=== PATIENT | female | born 1950 | race Caucasian/White ===

== ENCOUNTER 2017-05-19 11:03 | Emergency (ER) | payer MEDICARE, OTHER, SELFPAY ==
[2017-05-19 11:10] VITALS: BP 143/94; PULSE 79; RESP 18; TEMP 36.9; O2SAT 98; BMI 26.7
--- NOTE | 2017-05-19 11:18 | XR_ITS ---
EXAM: XR thoracic spine 3V HISTORY: Posterior manic pain ITS.REASON: fall COMPARISON: None FINDINGS: There is mild multilevel degenerative disc disease. There is slight decrease in height of T12, T11, T9, T8, and T7 which could be chronic. If pain persists, MRI or CT may be of further value. IMPRESSION: 1. Minimal wedging of several dorsal vertebral bodies possibly chronic. MRI may confirm clinically warranted. 2. Degenerative changes
--- NOTE | 2017-05-19 11:35 | PC.NURSE ---
Pt returned from rad.
--- NOTE | 2017-05-19 11:52 | HMH.EDGENADL ---
ED Disposition Clinical Impression: Strain of thoracic spine Qualifiers: Encounter type: initial encounter Qualified Code(s): S29.019A - Strain of muscle and tendon of unspecified wall of thorax, initial encounter Disposition: Home, Self-Care Condition on Discharge: Good Instructions: Thoracic Back Pain Additional Instructions: Please alternate Motrin with Tylenol for pain control, apply an ice pack to the affected area, follow-up with PCP if not better within 5-7 days. Prescriptions: Cyclobenzaprine HCl [Flexeril 10mg tablet] 10 mg PO TID #45 tab Referrals: Stanislaw Vyas [Primary Care Provider] - Time of Disposition: 11:54 - Critical Care Critical Care Time: No Attestation: On 05/19/17, the high probability of a clinically significant, sudden or life threatening deterioration of the following system(s) required my full and direct attention, intervention and personal management. The time I documented below is in addition to time spent performing reported procedures but includes the following listed in this critical care notation. Medical Decision Making - Medical Records Medical records reviewed: Yes: I reviewed the patient's medical records. Vital Signs: 05/19/17 11:10 05/19/17 12:00 Temperature 98.5 F 98.4 F Temperature Source Oral Oral Pulse Rate 87 Pulse Rate [Right Brachial] 79 Respiratory Rate 18 18 Blood Pressure 137/98 Blood Pressure [Right Arm] 143/94 Blood Pressure Mean [Right Arm] 110 Blood Pressure Source Manual Cuff/ Palpation Blood Pressure Source [Right Arm] Automatic Cuff Blood Pressure Position Sitting Blood Pressure Position [Right Arm] Sitting 02 Sat by Pulse Oximetry 98 Oxygen Delivery Method Room Air Nasal Cannula Room Air - Radiology Data #1 Image(s): T-Spine Image Reviewed: Yes I reviewed the patient's radiology results, Yes I reviewed the patient's radiology image, Yes I have reviewed radiologist's interpretation Preliminary Findings: Normal/NAD - Jose Inquiry Pt receiving controlled substance: No - Reevaluation(s) Time: 11:30 Reevaluation #1: Upon evaluation patient appears medically stable no acute distress. The patient with Motrin Tylenol for pain control and follow-up with PCP if not better within 2 days. General Adult HPI - General Chief complaint: PAIN Stated complaint: AO [id number] UPPER BACK PAIN Mode of Arrival: Family Vehicle Limitations: No Limitations - History of Present Illness HPI narrative: This is a 66-year-old female patient presenting to the emergency room with upper back pain after a fall sustained just 30 minutes ago, while walking outside, and falling backwards on her also with stairs. Patient has any headache, any neck pain, loss of consciousness. MD complaint: Rest sick spine pain Onset (ago): hour(s) (2-3) Location: back (upper back) Radiation: non-radiation Severity: mild Severity scale (1-10): 2 Quality: burning Consistency: intermittent Relieving factors: rest Exacerbating factors: movement Associated symptoms: denies other symptoms - Related Data Home Medications Medication Instructions Recorded Confirmed Levothyroxine Sodium 100 mg PO DAILY 05/19/17 05/19/17 [Levothyroxine 100mcg (0.1MG) Tab] Previous Rx's Medication Instructions Recorded Cyclobenzaprine HCl [Flexeril 10mg 10 mg PO TID #45 tab 05/19/17 tablet] Allergies Allergy/AdvReac Type Severity Reaction Status Date / Time No Known Allergies Allergy Verified 05/19/17 11:18 [facility] History I have reviewed the patient's past medical history: Yes Medical History: Denies:: Cancer, Diabetes Mellitus Type 1, Diabetes Mellitus Type 2, MRSA Amputation: No - *Social History Educational Level: Completed High School Alcohol Intake: never - Psychiatric History Expresses thoughts of harming self/others: None Suicide Plan Description: No Plan ROS Obtained: Yes All systems reviewed & no additional complaints
--- NOTE | 2017-05-19 11:55 | ED_ITS ---
ED Disposition Clinical Impression: Strain of thoracic spine Qualifiers: Encounter type: initial encounter Qualified Code(s): S29.019A - Strain of muscle and tendon of unspecified wall of thorax, initial encounter Disposition: Home, Self-Care Condition on Discharge: Good Instructions: Thoracic Back Pain Additional Instructions: Please alternate Motrin with Tylenol for pain control, apply an ice pack to the affected area, follow-up with PCP if not better within 5-7 days. Prescriptions: Cyclobenzaprine HCl [Flexeril 10mg tablet] 10 mg PO TID #45 tab Referrals: Stanislaw Vyas [Primary Care Provider] - Time of Disposition: 11:54 - Critical Care Critical Care Time: No Attestation: On 05/19/17, the high probability of a clinically significant, sudden or life threatening deterioration of the following system(s) required my full and direct attention, intervention and personal management. The time I documented below is in addition to time spent performing reported procedures but includes the following listed in this critical care notation. Medical Decision Making - Medical Records Medical records reviewed: Yes: I reviewed the patient's medical records. Vital Signs: 05/19/17 11:10 05/19/17 12:00 Temperature 98.5 F 98.4 F Temperature Source Oral Oral Pulse Rate 87 Pulse Rate [Right Brachial] 79 Respiratory Rate 18 18 Blood Pressure 137/98 Blood Pressure [Right Arm] 143/94 Blood Pressure Mean [Right Arm] 110 Blood Pressure Source Manual Cuff/ Palpation Blood Pressure Source [Right Arm] Automatic Cuff Blood Pressure Position Sitting Blood Pressure Position [Right Arm] Sitting 02 Sat by Pulse Oximetry 98 Oxygen Delivery Method Room Air Nasal Cannula Room Air - Radiology Data #1 Image(s): T-Spine Image Reviewed: Yes I reviewed the patient's radiology results, Yes I reviewed the patient's radiology image, Yes I have reviewed radiologist's interpretation Preliminary Findings: Normal/NAD - Jose Inquiry Pt receiving controlled substance: No - Reevaluation(s) Time: 11:30 Reevaluation #1: Upon evaluation patient appears medically stable no acute distress. The patient with Motrin Tylenol for pain control and follow-up with PCP if not better within 2 days. General Adult HPI - General Chief complaint: PAIN Stated complaint: AO [id number] UPPER BACK PAIN Mode of Arrival: Family Vehicle Limitations: No Limitations - History of Present Illness HPI narrative: This is a 66-year-old female patient presenting to the emergency room with upper back pain after a fall sustained just 30 minutes ago, while walking outside, and falling backwards on her also with stairs. Patient has any headache, any neck pain, loss of consciousness. MD complaint: Rest sick spine pain Onset (ago): hour(s) (2-3) Location: back (upper back) Radiation: non-radiation Severity: mild Severity scale (1-10): 2 Quality: burning Consistency: intermittent Relieving factors: rest Exacerbating factors: movement Associated symptoms: denies other symptoms - Related Data Home Medications Medication Instructions Recorded Confirmed Levothyroxine Sodium 100 mg PO DAILY 05/19/17 05/19/17 [Levothyroxine 100mcg (0.1MG) Tab] Previous Rx's Medication Instructions Recorded Cyclobenzaprine HCl [Flexeril
[2017-05-19 12:00] VITALS: BP 137/98; PULSE 87; RESP 18; TEMP 36.9; O2SAT 99
== END 2017-05-19 12:01 | disposition home or self-care (01) ==
PROVIDERS: Emergency Provider Emergency Medicine; Family Provider Internal Medicine; PCP Internal Medicine
DX: S29.012A Strain of muscle and tendon of back wall of thorax, initial encounter (principal); W01.0XXA Fall on same level from slipping, tripping and stumbling without subsequent striking against object, initial encounter; Y92.007 Garden or yard of unspecified non-institutional (private) residence as the place of occurrence of the external cause
CPT/HCPCS: 72072; 99282

== ENCOUNTER → 2018-02-15 14:40 | Outpatient (CLI) | payer MEDICARE, OTHER, SELFPAY ==
--- NOTE | 2018-02-15 14:43 | MR_ITS ---
MR knee RT wo con HISTORY: Knee pain, abnormal radiograph suggesting a loose body, ITS.REASON: evaluate loose body in [facility] tknee ORDERING PHYSICIAN: Peterson Vaughn MD PATIENT AGE: 68 years Comparison: None TECHNIQUE: Standard multiplanar multiecho sequences are performed without contrast. FINDINGS: The cruciate ligaments are intact. The collateral ligaments, quadriceps tendon, and patellar tendon are intact. There is a horizontal tear involving the posterior horn and body of the medial meniscus which extends to the free edge of the meniscus posteriorly and medially. This does not extend to the articular surface of the meniscus. There are mild osteoarthritic changes involving all 3 compartments. There is a small triangular-shaped area of isointense T1 and T2 signal within the slight anterior aspect of the knee joint just anterior to the insertion of the anterior cruciate ligament. This is consistent with a loose body corresponding to the radiographic abnormality and measures approximately 4 mm. Subcortical cystic changes are present involving the distal femur anteriorly and slightly medially measuring 7 mm. Other subcortical cystic changes are present involving the lateral aspect of the medial femoral condyle toward the intercondylar groove. This is hypointense on T1 and hyperintense on T2 suggesting an area of avascular cirrhosis. A small cortical defect is present in the medial aspect of the lateral femoral condyle anteriorly. Mild amount of bone marrow edema also involving the posterior aspect of the proximal tibia at the insertion of the posterior cruciate ligament. There is a small knee joint effusion. There is thinning of the patellar cartilage with a few subcortical areas of increased T2 signal in the posterior patella. IMPRESSION: 1. Nondisplaced horizontal tear involves the ostium posterior horn of the medial meniscus extending to the free edge of the meniscus and not the articular surface. 2. Osteoarthritic changes with small loose body in the knee joint anteriorly with subcortical cystic changes and possible avascular necrosis of the lateral aspect of the medial femoral condyle anteriorly. 3. 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 Small amount of bone marrow edema involving the posterior tibia centrally at the region of the insertion of the posterior cruciate ligament possibly related to bone bruise.
== END ==
PROVIDERS: PCP Internal Medicine; Visit Provider Orthopaedic Surgery
DX: M23.41 Loose body in knee, right knee (principal)
CPT/HCPCS: 73721

== ENCOUNTER 2018-03-17 14:00 | Outpatient (RCR) | payer MEDICARE, OTHER, SELFPAY ==
--- NOTE | 2018-03-14 11:35 | HMH.PTOPEV ---
PT Outpatient Evaluation Rehab PT Outpatient Evaluation Start: 03/14/18 11:27 Freq: Status: Active Protocol: Document 03/14/18 11:28 JASON (Rec: 03/14/18 11:35 JASON [id number]) Electronically Signed By Dale Tinajero, PT 03/14/18 11:28 Outpatient Therapy Subjective History Subjective History Pt reports stepping out of the back of her van ~45 days ago, and feeling a 'tearing' sensation. MRI has confirmned a medial meniscus tear in the R knee. Pt reports improved s/ s over the last 10-14 days, and feels 80% better overall. Chief Complaint Pain Weakness Symptom Type Sharp Symptoms Relieved By Activity Symptoms Aggravated By Walking Prior Functional Limitations Walking Current Functional Limitations Walking Stairs Symptom Description Constant and Continuous Level of pain today (0-10) 2 Pain scale - at its best (0-10) 0 Pain scale - at its worst (0-10) 4 Hip/Knee Eval Gait Observation General Gait Pattern Observation Antalgic Gait Palpation Tenderness right Knee Palpation Finding Tenderness Knee Palpation Overall Comment 3/4 medial jt line MMT left Hip Flexion Strength Grade 5 Normal Hip Abduction Strength Grade 4 Good Hip Adduction Strength Grade 4 Good Hip Extension Strength Grade 4 Good Hip External Rotation Strength Grade 4 Good Hip Internal Rotation Strength Grade 4 Good Knee Extension Strength Grade 5 Normal Knee Flexion Strength Grade 5 Normal right Hip Flexion Strength Grade 5 Normal Hip Abduction Strength Grade 4 Good Hip Adduction Strength Grade 4- Good- Hip Extension Strength Grade 4- Good- Gluteus Nelson Strength Grade 4 Good Hip External Rotation Strength Grade 4 Good Knee Extension Strength Grade 5 Normal Knee Flexion Strength Grade 5 Normal ROM left Knee Flexion Active Range of Motion ( 0-140 degrees) right Knee Flexion Active Range of Motion ( 0-140 degrees) Effusion joint effusion knee exam standard right Mid - Patellar Circumerential Measure ( 38.5 cm) Special Tests Knee Dirk Test Negative Left Positive Right Outpatient Therapy Assessment Impairments Problems/Impairmments Palpation Tenderness Impaired Range of Motion Impaired Strength Impaired Gait
== END 2018-03-17 14:05 | disposition home or self-care (01) ==
LOC: PT 14:00
PROVIDERS: Visit Provider Orthopaedic Surgery
DX: S83.241A Other tear of medial meniscus, current injury, right knee, initial encounter (principal)
CPT/HCPCS: 97033; 97110; 97163

== ENCOUNTER 2020-02-20 10:25 | Emergency (ER) | payer MEDICARE, OTHER, SELFPAY ==
--- NOTE | 2020-02-20 10:42 | XR_ITS ---
PROCEDURE: XR HAND LT MIN 3V CLINICAL INDICATION: injured ring finger Injury to the 4th digit COMPARISON: No exams were available for comparison FINDINGS: Incomplete fracture is present involving the mid aspect of the distal phalanx of the 4th digit. There is dorsal subluxation of the distal fracture fragment by 3 mm. There is 0 percent bony apposition. Osteoarthritic changes are present at the 2nd 3rd and 5th DIP and the 1st interphalangeal joint as well as the 1st metacarpal-carpal joint. Other findings:None. IMPRESSION: Transverse fractured distal phalanx 4th finger with dorsal displacement of the distal fracture fragment and 0 percent bony apposition Dictated by: Jesus Smith MD 02/20/2020 12:30 Jesus Smith MD in [place] 02/20/2020 12:30
[2020-02-20 10:58] VITALS: BP 132/77; PULSE 79; RESP 18; TEMP 36.6; O2SAT 99; BMI 22.6
[2020-02-20 11:14] VITALS: BP 132/77; PULSE 79; RESP 18; TEMP 36.6; O2SAT 99
--- NOTE | 2020-02-20 11:46 | HMH.EDUTC ---
[facility] [place] Clinical Impression: Phalanx, distal fracture of finger Qualifiers: Encounter type: initial encounter Finger: ring finger Fracture type: closed Fracture alignment: displaced Laterality: left Qualified Code(s): S62.635A - Displaced fracture of distal phalanx of left ring finger, initial encounter for closed fracture Disposition: Home, Self-Care Condition on Discharge: Good Instructions: Finger Fracture, DI for Finger Fracture, How To Perform RICE (Rest, Ice, Compress, Elevate) Additional Instructions: *RICE, Rest the extremity, Ice 15-20 minutes 3-4 times daily, Compress- wear the Finger splint/sherry wrap as discussed as much as possible to help reduce swelling and pain, Elevate the extremity when at rest *Finger splint/sherry wrap is for support and help control swelling, use it except in the shower. Be sure that is not to tight but not to loose either *Elevate when resting Follow up with Dr Vaughn in the [facility]opedic [facility] at 1pm today Return if needed Straight to ER if any life threatening symptoms Referrals: Stanislaw Vyas [Primary Care Provider] - As needed Peterson Vaughn MD [Staff Physician] - 02/20/20 1:00 pm Time of Disposition: 11:57 Medical Decision Making - Jose Inquiry Pt receiving controlled substance: No Jose was queried for this patient: No Vital Signs: 02/20/20 10:58 02/20/20 11:14 Temperature 97.8 F 97.8 F Temperature Source Oral Pulse Rate 79 Pulse Rate [Left] 79 Respiratory Rate 18 18 Blood Pressure 132/77 Blood Pressure [Right Arm] 132/77 Blood Pressure Mean [Right Arm] 95 Blood Pressure Source [Right Arm] Automatic Cuff Blood Pressure Position [Right Arm] Sitting 02 Sat by Pulse Oximetry 99 Oxygen Delivery Method Room Air Orders (Tests/Meds): ORDERS Category Date Time Status XR hand LT min 3V Stat Exams 02/20/20 10:42 Taken - Radiology Data #1 Image(s): Hand Image Reviewed: Yes I reviewed the patient's radiology image tuft fracture (distal phalanx) in left ring finger - Physician Consults Physician Consulted: Roderick Time: 11:20 Reason -: Orthopedic Eval/Care Comment/Response: Spoke with Lauren in Orthopedics and she spoke with Dr Vaughn and he viewed the xray and agreed with fracture of distal phalanx (tuft Fx) advised to place in splint and be at the clinic at 1pm [facility] [place] - General Stated complaint: AO [id number] ring finger on left hand, home acci Time Seen by Provider: 02/20/20 11:25 Mode of Arrival: Ambulatory Source of Information: Patient Limitations: No Limitations Description of Symptoms (Recalled from Triage Doc. by RN): Left hand pain- Pt slammed her hand down on table injurying her left 4th digit HEENT Symptoms (Recalled from RN notes): No Resp Symptoms (Recalled from RN notes): No Skin Symptoms (Recalled from RN notes): No MS Symptoms (Recalled from RN notes): Yes Functional Status (Recalled from RN notes): stable - History of Present Illness Provider Complaint: Patient states that yesterday she was upset and she smacked her hand down on the table States that she immediately had pain in her left ring finger and looked down and noticed it looked bent back States that she thought she may have stobbed' it up so she pulled on it and it looked like it straightened up States that today when she got up she noticed it looked purple and bruised and was very swollen and felt tight so she come in to get it checked out - Related Data Home Medications Medication Instructions Recorded Confirmed Levothyroxine Sodium 100 mg PO DAILY 05/19/17 02/20/20 [Levothyroxine 100mcg (0.1MG) Tab] Allergies Allergy/AdvReac Type Severity Reaction Status Date / Time No Known Allergies Allergy Verified 02/20/20 11:15 - Worker's Comp Is this a Worker's Comp case?: No Is this an [facility] Worker's Comp?: No Is this a [place] Worker's Comp?: No [facility] History - Hepatitis A Screen Drug use history?: No High risk sexual behaviors?: No Hi
== END 2020-02-20 12:02 | disposition home or self-care (01) ==
PROVIDERS: Emergency Provider Nurse Practitioner; PCP Internal Medicine
DX: S62.635A Displaced fracture of distal phalanx of left ring finger, initial encounter for closed fracture (principal); W22.03XA Walked into furniture, initial encounter; Y92.019 Unspecified place in single-family (private) house as the place of occurrence of the external cause
CPT/HCPCS: 29125; G0463; 73130; 99201

== ENCOUNTER 2020-05-01 10:00 | Outpatient (RCR) | payer MEDICARE, OTHER, SELFPAY | END 2020-05-01 10:05 | disposition home or self-care (01) | LOC: OT 10:00 | PROVIDERS: PCP Internal Medicine; Visit Provider Orthopaedic Surgery Adult Reconstructive Orthopaedic Surgery | DX: S62.635A Displaced fracture of distal phalanx of left ring finger, initial encounter for closed fracture (principal) | CPT/HCPCS: 97010; 97110; 97140; 97166 ==

== ENCOUNTER → 2021-03-12 15:17 | Outpatient (CLI) | payer MEDICARE, OTHER, SELFPAY ==
[2021-03-12 16:02] LABS: Chloride 106 mmol/L (98-107); Potassium 4.5 mmoL/L (3.5-5.1); Sodium 139 mmol/L (136-145)
[2021-03-12 16:04] LABS: Alanine Aminotransferase 11 U/L (12-78); Alkaline Phosphatase 113 U/L (38-126); Aspartate Amino Transferase 27 U/L (14-36); Bilirubin,Total 0.6 mg/dl (0.2-1.3); Blood Urea Nitrogen 16 mg/dl (7-17); Estimated Glomerular Filt Rate 83 ml/min (>60); GFR (African American) 100 ML/MIN (>60)
[2021-03-12 16:05] LABS: Albumin Level 4.1 g/dl (3.5-5.0); Albumin/Globulin Ratio 1.6 (1.1-1.8); Anion Gap 12.5 mEq/L (5-15); Calcium 10.1 mg/dl (8.4-10.2); Carbon Dioxide 25 mmol/L (22.0-30.0); Cholesterol 163 mg/dl (140-200); Globulin 2.5 g/dL (1.3-3.2); Glucose 65 mg/dl (74-100); HDL Cholesterol 55 mg/dl (40-60); Total Protein,Serum 6.6 g/dl (6.3-8.2); Triglycerides 107 mg/dl (30-150); VLDL Cholesterol 21 mg/dL (0-40)
[2021-03-12 16:18] LABS: Direct LDL Cholesterol 93.07 mg/dL (100-129)
[2021-03-12 16:33] LABS: Thyroid Stimulating Hormone 3.01 uIU/mL (0.465-4.68)
[2021-03-12 17:15] LABS: Vitamin B12 323 pg/mL (239-931)
[2021-03-12 17:42] LABS: 25-OH Vitamin D, Total 27.9 ng/mL (30-100)
== END ==
PROVIDERS: Visit Provider Internal Medicine
DX: E03.9 Hypothyroidism, unspecified (principal); E78.5 Hyperlipidemia, unspecified; D64.9 Anemia, unspecified; M17.0 Bilateral primary osteoarthritis of knee; Z98.84 Bariatric surgery status; E55.9 Vitamin D deficiency, unspecified
CPT/HCPCS: 80053; 80061; 82306; 82607; 84443

== ENCOUNTER 2022-02-10 15:22 | Emergency (ER) | payer MEDICARE, OTHER, SELFPAY ==
[2022-02-10 15:49] VITALS: BP 158/92; PULSE 65; RESP 18; TEMP 37.1; O2SAT 96; BMI 25.0
--- NOTE | 2022-02-10 15:51 | EXP.UTC ---
Discharge Plan Disposition Patient Disposition: Home, Self-Care Condition: Good Prescriptions Prescriptions: New doxycycline hyclate [doxycycline hyclate] 100 mg capsule 100 mg PO Q12 10 Days Qty: 20 0RF mupirocin 2 % ointment 1 applic topical TID 7 Days Qty: 15 0RF No Action levothyroxine 100 MCG tablet 100 mg PO DAILY Referrals Follow up/Referrals: Stanislaw Vyas MD [Primary Care Provider] - See instructions Activity Restrictions/Add. Instructions Additional Instructions/Restrictions: Keep the affected area clean and dry. Follow up with your regular doctor. Take the antibiotics as directed and apply the topical antibiotics as directed. Apply warm wet compresses to the affected area three or four times per day. GO TO THE ER FOR ANY WORSENING SYMPTOMS Clinical Impressions Clinical Impression: Infected insect bite, Cellulitis of arm, right Instructions Patient Instructions: DI for Insect Bites and Stings, DI for Cellulitis -- Adult Discharge ED Provider: Boris Ortiz [facility] General Stated complaint: right shoulder pain no acc Time Seen by Provider: 02/10/22 15:51 History of Present Illness Provider Complaint: She states that she has an infected bug bite or tick bite on the back of her right upper arm. She found a tick embedded in this area about 2 weeks ago. She states the tick was removed and it felt ok. At this time she is not sure if the area she is having pain at today is exactly the same place as the tick bite. She denies any fever, chills, or joint pain. Related Data Home Medications Medication Instructions Recorded Confirmed levothyroxine 100 mcg tablet 100 mg PO DAILY THYROID 05/19/17 02/20/20 Previous Rx's Medication Instructions Recorded doxycycline hyclate 100 mg capsule 100 mg PO Q12 10 days #20 caps 02/10/22 mupirocin 2 % topical ointment 1 applic topical TID 7 days #15 02/10/22 grams Allergies Allergy/AdvReac Type Severity Reaction Status Date / Time No Known Allergies Allergy Verified 02/10/22 16:07 [facility] Social History Smoking Status: Never smoker alcohol intake: never current occupational status: retired Travel in the last 8 weeks: None ROS Obtained: Yes All systems reviewed & no additional complaints except as documented Constitutional Constitutional: Denies chills and Denies fever(s) Eyes Eyes: Denies eye discharge ENT Ears, Nose, Mouth, and Throat: Denies dizziness, Denies otalgia and Denies sore throat Cardiovascular Cardiovascular: Denies chest pain Respiratory Respiratory: Denies shortness of breath, Denies chest congestion, Denies cough, Denies stridor and Denies wheezing Gastrointestinal Gastrointestingal: Denies nausea or vomiting Musculoskeletal Musculoskeletal: Reports system reviewed and no additional complaints, except as documented and Denies arthralgias Integumentary/Breasts Skin/Breast: Reports as per HPI, Reports redness and Reports rash Neurologic Neurologic: Denies dizziness and Denies paresthesias Allergic/Immunologic Allergic/Immunologic: Denies wheezing Physical Exam General General appearance: alert and in no apparent distress Head Head exam: atraumatic, normocephalic and normal inspection Eye Eye exam: Present normal appearance, PERRL and EOMI ENT ENT exam: Present normal exam, normal oropharynx, mucous membranes moist, TM's normal bilaterally and normal external ear exam Neck Neck exam: Present normal inspection, full ROM and trachea midline; Absent meningismus or lymphadenopathy Chest Chest inspection: Present normal inspection and symmetric chest wall rise; Absent tenderness Respiratory Respiratory exam: Present normal lung sounds bilaterally; Absent respiratory distress Cardiovascular Cardiovascular exam: Present regular rate and normal rhythm; Absent JVD Abdominal Exam Abdominal exam: Present soft and normal bowel sounds; Absent d
[2022-02-10 16:30] VITALS: BP 158/92; PULSE 65; RESP 18; TEMP 37.1
== END 2022-02-10 16:37 | disposition home or self-care (01) ==
PROVIDERS: Emergency Provider Nurse Practitioner Family; PCP Internal Medicine
DX: L03.113 Cellulitis of right upper limb (principal); S40.861A Insect bite (nonvenomous) of right upper arm, initial encounter
CPT/HCPCS: 99212; G0463

== ENCOUNTER → 2022-04-27 13:22 | Outpatient (CLI) | payer MEDICARE, OTHER, SELFPAY ==
[2022-04-27 15:30] LABS: Basophils # 0.1 K/mm3 (0-0.2); Basophils % 1.2 % (0.1-2.0); Eosinophils # 0.1 K/mm3 (0.0-0.4); Eosinophils % 3.6 % (0.1-12.0); Hematocrit 42.4 % (37.0-47.0); Hemoglobin 13.8 g/dL (12.2-16.2); Lymphocytes # 1.6 K/mm3 (0.7-4.5); Lymphocytes % 41.8 % (10-50); Mean Corpuscular HGB Conc 32.6 g/dL (31.8-35.4); Mean Corpuscular Hemoglobin 31.7 pg (27.0-31.2); Mean Corpuscular Volume 97.3 fl (81-99); Mean Platelet Volume 9.3 fl (7.4-10.4); Monocytes # 0.2 K/mm3 (0.1-1.0); Monocytes % 6.1 % (1.7-9.3); Neutrophils # 1.8 K/mm3 (1.8-7.8); Neutrophils % 47.3 % (37.0-80.0); Platelet Count 277 K/mm3 (142-424); Red Blood Count 4.36 M/mm3 (4.20-5.40); Red Cell Distribution Width 12.9 % (11.5-17.5); White Blood Count 3.8 K/mm3 (4.8-10.8)
[2022-04-27 15:45] LABS: Alanine Aminotransferase 12 U/L (12-78); Albumin Level 4.5 g/dl (3.5-5.0); Albumin/Globulin Ratio 1.8 (1.1-1.8); Alkaline Phosphatase 92 U/L (38-126); Anion Gap 11.8 mEq/L (5-15); Aspartate Amino Transferase 22 U/L (14-36); Bilirubin,Total 0.5 mg/dl (0.2-1.3); Blood Urea Nitrogen 24 mg/dl (7-17); Calcium 9.9 mg/dl (8.4-10.2); Carbon Dioxide 26 mmol/L (22.0-30.0); Chloride 105 mmol/L (98-107); Chol/HDL Ratio 2.7 (1-3.5); Cholesterol 146 mg/dl (140-200); Estimated Glomerular Filt Rate 71 ml/min (>60); GFR (African American) 86 ML/MIN (>60); Globulin 2.5 g/dL (1.3-3.2); Glucose 74 mg/dl (74-100); HDL Cholesterol 54 mg/dl (40-60); Potassium 4.8 mmoL/L (3.5-5.1); Sodium 138 mmol/L (136-145); Triglycerides 87 mg/dl (30-150); VLDL Cholesterol 17 mg/dL (0-40)
[2022-04-27 15:56] LABS: Direct LDL Cholesterol 69.29 mg/dL (100-129)
[2022-04-27 16:02] LABS: 25-OH Vitamin D, Total 17.3 ng/mL (30-100)
[2022-04-27 16:15] LABS: Thyroid Stimulating Hormone 2.43 uIU/mL (0.465-4.68)
== END ==
PROVIDERS: PCP Internal Medicine; Visit Provider Internal Medicine
DX: E03.9 Hypothyroidism, unspecified (principal); D64.9 Anemia, unspecified; E78.5 Hyperlipidemia, unspecified; E55.9 Vitamin D deficiency, unspecified; M17.0 Bilateral primary osteoarthritis of knee; Z98.84 Bariatric surgery status
CPT/HCPCS: 80053; 80061; 82306; 84443; 85025

== ENCOUNTER → 2022-05-18 08:21 | Outpatient (CLI) | payer MEDICARE, OTHER, SELFPAY ==
--- NOTE | 2022-05-18 08:30 | MM_ITS ---
PROCEDURE INFORMATION: Exam: MG Bilateral Screening 3D Mammography Exam date and time: 05/18/2022 8:22 AM Age: 72 years old Clinical indication: Screening. No family history of breast cancer. History of benign right excisional biopsy. TECHNIQUE: Imaging protocol: Bilateral Screening tomosynthesis and 2D mammography including computer-aided detection (CAD) when performed. COMPARISON: 1. MG DMSB DIG MAMM-SCREEN YOU W/CAD 04/10/2016 9:30 AM 2. MG DMSB DIG MAMM-SCREEN YOU 03/16/2014 11:05 AM 3. MG BC MAMM DIAG BILAT DIG PNL 10/23/2010 1:05 PM FINDINGS: MAMMOGRAPHY: Breast composition: There are scattered areas of fibroglandular density. Mass: No suspicious mass. Architectural distortion: None. Calcifications: No suspicious calcifications. Asymmetric density: None. Skin thickening: None. Axillary adenopathy: None. IMPRESSION: No mammographic evidence of malignancy. Annual screening is recommended unless otherwise clinically indicated. ASSESSMENT: BI-RADS Category 1: Negative
--- NOTE | 2022-05-18 08:53 | XR_ITS ---
FINAL REPORT TECHNIQUE: Bone densitometry calculations of the lumbar spine hips were obtained. CLINICAL HISTORY: . post menopausal screening FINDINGS: DEXA BONE DENSITY AXIAL SKELETON Using L1-4, the bone mineral density of the spine is 0.611 g/cm2, corresponding to T-score of -4.0. Using the right hip, the bone mineral density of the femoral neck is 0.561 g/cm2, corresponding to a T-score of -2.6. Using the left hip, the bone mineral density of the total hip is 0.491 g/cm2, corresponding to a T-score of -3.7. NOTE: T-score: Standard deviation compared with peak bone mass of young adult mean. *Following the recommendations of the International Society of Bone Densitometry, classification of hip BMD is based on the lower of two T-scores; total hip or femoral neck. IMPRESSION: Osteoporosis: Lowest T-score is at or below -2.5. This patient's T-score meets the World Health Organization criteria for osteoporosis. FRAX not reported because: Some T-score for Spine Total or hip Total or femoral neck at or below -2.5. Reviewed, Interpreted and Dictated by Murali Tamayo MD Transcribed by Tamera Quan Authenticated and [facility]
== END ==
PROVIDERS: PCP Internal Medicine; Visit Provider Internal Medicine
DX: Z12.31 Encounter for screening mammogram for malignant neoplasm of breast (principal); Z78.0 Asymptomatic menopausal state
CPT/HCPCS: 77063; 77067; 77080

== ENCOUNTER 2023-01-22 08:41 | Emergency (ER) | payer MEDICARE, OTHER, SELFPAY ==
[2023-01-22 08:50] VITALS: BP 126/76; PULSE 104; RESP 20; TEMP 37.7; O2SAT 95; BMI 24.5
--- NOTE | 2023-01-22 09:04 | EXP.UTC ---
Discharge Plan Disposition Patient Disposition: Home, Self-Care Condition: Good Prescriptions Prescriptions: New ondansetron 4 mg Tablet,Disintegrating 4 mg PO Q8H PRN (Reason: Nausea) Qty: 12 0RF No Action levothyroxine 100 MCG tablet 100 mg PO DAILY Referrals Follow up/Referrals: Stanislaw Vyas MD [Primary Care Provider] - See instructions Activity Restrictions/Add. Instructions Additional Instructions/Restrictions: Drink plenty of fluids. Take tylenol for pain or fever. Take the medications as directed. Follow up with your regular doctor. GO TO THE ER FOR ANY WORSENING SYMPTOMS Clinical Impressions Clinical Impression: Acute viral syndrome Instructions Patient Instructions: DI for Viral Syndrome Discharge ED Provider: Boris Ortiz [facility] General Stated complaint: weskness and bp low Mode of Arrival: Ambulatory Source of Information: Patient Limitations: No Limitations Time Seen by Provider: 01/22/23 09:04 Description of Symptoms (Recalled from Triage Doc. by RN): PATIENT C/O FEELING LIGHT-HEADED AND HAVING A BLOOD PRESSURE OF 90/60 AT HOME LAST NIGHT. SHE ALSO STATES SHE STARTED HAVING DIARRHEA ON WEDNESDAY, BUT HER LAST EPISODE WAS YESTERDAY HEENT Symptoms (Recalled from RN notes): No Resp Symptoms (Recalled from RN notes): No Skin Symptoms (Recalled from RN notes): No MS Symptoms (Recalled from RN notes): No Functional Status (Recalled from RN notes): WNL History of Present Illness Provider Complaint: She states that for the past 3 days she has had diarrhea and she has felt bad. She has ran a low grade fever. Related Data Home Medications Medication Instructions Recorded Confirmed levothyroxine 100 mcg tablet 100 mg PO DAILY THYROID 05/19/17 01/22/23 Previous Rx's Medication Instructions Recorded ondansetron 4 mg disintegrating 4 mg PO Q8H PRN Nausea #12 tabs 01/22/23 tablet Allergies Allergy/AdvReac Type Severity Reaction Status Date / Time No Known Allergies Allergy Verified 02/10/22 16:07 Worker's Comp Is this a Worker's Comp case?: No [facility] Disclaimer: The information contained in this section may have been updated after the patient was seen, as this information can be updated by other users. Medical History (Updated 01/22/23 @ 09:34 by Boris Ortiz APRN) Thyroid disease Social History (Updated 02/10/22 @ 16:29 by Boris Ortiz APRN) Smoking Status: Never smoker alcohol intake: never current occupational status: retired Travel in the last 8 weeks: None ROS Obtained: Yes All systems reviewed & no additional complaints except as documented Constitutional Constitutional: Reports poor appetite Eyes Eyes: Reports system reviewed and no additional complaints, except as documented ENT Ears, Nose, Mouth, and Throat: Reports as per HPI Cardiovascular Cardiovascular: Reports system reviewed and no additional complaints, except as documented and Denies chest pain Respiratory Respiratory: Denies shortness of breath, Denies chest congestion, Reports cough, Denies stridor and Denies wheezing Gastrointestinal Gastrointestingal: Reports system reviewed and no additional complaints, except as documented; Denies abdominal pain, diarrhea or vomiting Musculoskeletal Musculoskeletal: Reports system reviewed and no additional complaints, except as documented and Denies arthralgias Integumentary/Breasts Skin/Breast: Reports system reviewed and no additional complaints, except as documented and Denies rash Neurologic Neurologic: Denies paresthesias Allergic/Immunologic Allergic/Immunologic: Denies wheezing Physical Exam General General appearance: alert and in no apparent distress Head Head exam: atraumatic, normocephalic and normal inspection Eye Eye exam: Present normal appearance, PERRL and EOMI ENT ENT exam: Present normal exam, normal oropharynx, mucous membranes moist, TM's normal bilaterally and normal external ear exam Neck Neck ex
[2023-01-22 09:08] LABS: Coronavirus 19, PCR Not Detected (NotDetected); Influenza A, PCR Not Detected (NotDetected); Influenza B, PCR Not Detected (NotDetected)
[2023-01-22 09:35] VITALS: BP 126/76; PULSE 104; RESP 20; TEMP 37.7; O2SAT 95
== END 2023-01-22 09:38 | disposition home or self-care (01) ==
PROVIDERS: Emergency Provider Nurse Practitioner Family; PCP Internal Medicine
DX: R19.7 Diarrhea, unspecified (principal); R50.9 Fever, unspecified; B34.9 Viral infection, unspecified; E03.9 Hypothyroidism, unspecified
CPT/HCPCS: 87636; 99212; 99214; G0463

== ENCOUNTER 2023-01-23 04:45 | Emergency (ER) | payer MEDICARE, OTHER, SELFPAY ==
[2023-01-23 04:46] VITALS: BP 104/58; PULSE 98; RESP 16; TEMP 36.7; O2SAT 95; BMI 25.0
--- NOTE | 2023-01-23 05:04 | HMH.EDGENADL ---
Discharge Plan Disposition Patient Disposition: Home, Self-Care Condition: Good Prescriptions Prescriptions: New diphenoxylate-atropine [Lomotil] 2.5-0.025 mg tablet 1 tab PO Q6H PRN (Reason: diarrhea) Qty: 20 0RF No Action levothyroxine 100 MCG tablet 100 mg PO DAILY ondansetron 4 mg Tablet,Disintegrating 4 mg PO Q8H PRN (Reason: Nausea) Qty: 12 0RF Referrals Follow up/Referrals: Stanislaw Vyas MD [Primary Care Provider] - See instructions Activity Restrictions/Add. Instructions Additional Instructions/Restrictions: You were evaluated in the emergency department today. Please warehouse order picker your prescription for Lomotil and take as needed for diarrhea. Make sure that you are staying hydrated. Eat a bland diet consisting of bananas, rice, applesauce, and toast until your symptoms have resolved. Follow-up with your primary care provider over the next 3 days for reassessment. Clinical Impressions Clinical Impression: Diarrhea Qualifiers: Diarrhea type: unspecified type Qualified Code(s): R19.7 - Diarrhea, unspecified Instructions Patient Instructions: DI for Diarrhea and Traveler's Diarrhea -- Adult Discharge ED Provider: Joy Rivera General Adult HPI General Chief complaint: Nausea/Vomiting/Diarrhea Stated complaint: poss dehydration Time Seen by Provider: 01/23/23 04:53 Mode of Arrival: Ambulatory Limitations: No Limitations Description of Symptoms (Recalled from ER Triage Doc. by RN): Pt states she has had diarrhea since friday 01/19, and was seen in [facility] yesterday. Pt states diarrhea has not gotten better, and she has been taking OTC anti-diarrhea medication at home. Pt states she has had a low-grade fever of 99.8 and she is dehydrated as well History of Present Illness HPI narrative: This patient is a 73-year-old female who denies significant past medical history presenting to the emergency department for evaluation with concern for diarrhea since Friday 01/19. She notes that she is having 3 loose watery stools each day. She states that she was seen yesterday in [facility], but they did not do anything for her. She is been taking an [id number] antidiarrheal and without good improvement in her symptoms. She has had no fevers, chest pain, shortness of breath, cough, congestion, abdominal pain, nausea, vomiting, or other concerns. She states that her concern today is that she has a very dry mouth and is starting to feel weak, so she is concerned that she is dehydrated. No recent antibiotic use, medication changes, or other concerns noted. Related Data Home Medications Medication Instructions Recorded Confirmed levothyroxine 100 mcg tablet 100 mg PO DAILY THYROID 05/19/17 01/23/23 Previous Rx's Medication Instructions Recorded ondansetron 4 mg disintegrating 4 mg PO Q8H PRN Nausea #12 tabs 01/22/23 tablet diphenoxylate-atropine 2.5 1 tab PO Q6H PRN diarrhea #20 tabs 01/23/23 mg-0.025 mg tablet (Lomotil) Allergies Allergy/AdvReac Type Severity Reaction Status Date / Time No Known Allergies Allergy Verified 02/10/22 16:07 [facility] Disclaimer: The information contained in this section may have been updated after the patient was seen, as this information can be updated by other users. Medical History Thyroid disease Social History Smoking Status: Never smoker alcohol intake: never current occupational status: retired Travel in the last 8 weeks: None ROS Obtained: Yes All systems reviewed & no additional complaints except as documented Physical Exam General General appearance: alert and in no apparent distress Head Head exam: atraumatic and normocephalic Eye Eye exam: Present normal appearance, PERRL and EOMI ENT ENT exam: Present normal exam, normal oropharynx, mucous membranes moist and normal external ear exam Neck Neck exam: Present norm
[2023-01-23 05:25] LABS: Basophils % 0.5 % (0.1-2.0); Eosinophils # 0.1 K/mm3 (0.0-0.4); Eosinophils % 1.1 % (0.1-12.0); Hematocrit 37.1 % (37.0-47.0); Hemoglobin 12.9 g/dL (12.2-16.2); Lymphocytes # 1.2 K/mm3 (0.7-4.5); Lymphocytes % 19.6 % (10-50); Mean Corpuscular HGB Conc 34.7 g/dL (31.8-35.4); Mean Corpuscular Hemoglobin 32.8 pg (27.0-31.2); Mean Corpuscular Volume 94.5 fl (81-99); Monocytes # 0.5 K/mm3 (0.1-1.0); Neutrophils # 4.2 K/mm3 (1.8-7.8); Neutrophils % 70.8 % (37.0-80.0); Platelet Count 222 K/mm3 (142-424); Red Blood Count 3.92 M/mm3 (4.20-5.40); Red Cell Distribution Width 12.9 % (11.5-17.5)
[2023-01-23 05:36] LABS: Alanine Aminotransferase 22 U/L (12-78); Albumin Level 3.4 g/dl (3.5-5.0); Albumin/Globulin Ratio 1.1 (1.1-1.8); Alkaline Phosphatase 70 U/L (38-126); Anion Gap 11.5 mEq/L (5-15); Aspartate Amino Transferase 28 U/L (14-36); Blood Urea Nitrogen 12 mg/dl (7-17); Calcium 9.4 mg/dl (8.4-10.2); Carbon Dioxide 23 mmol/L (22.0-30.0); Chloride 104 mmol/L (98-107); Creatinine Clearance Estimated 55 mL/min (50-200); Estimated Glomerular Filt Rate 99 ml/min (>60); GFR (African American) 119 ML/MIN (>60); Glucose 119 mg/dl (74-100); Lipase 36 U/L (23-300); Magnesium 1.6 mg/dl (1.6-2.3); Potassium 3.5 mmoL/L (3.5-5.1); Sodium 135 mmol/L (136-145); Total Protein,Serum 6.4 g/dl (6.3-8.2)
[2023-01-23 05:37] VITALS: BP 95/50; PULSE 90; RESP 18; O2SAT 95
[2023-01-23 06:00] VITALS: BP 94/51; PULSE 88; RESP 20; O2SAT 96
[2023-01-23 06:09] VITALS: BP 102/57; PULSE 91; O2SAT 94
[2023-01-23 06:40] VITALS: BP 100/58; PULSE 62; RESP 18; TEMP 36.9
== END 2023-01-23 06:41 | disposition home or self-care (01) ==
PROVIDERS: Emergency Provider Emergency Medicine; PCP Internal Medicine
DX: E86.0 Dehydration (principal); R19.7 Diarrhea, unspecified; E03.9 Hypothyroidism, unspecified
CPT/HCPCS: 80053; 83690; 83735; 85025; 96361; 96374; 99284; J2405

== ENCOUNTER → 2023-01-27 13:39 | Outpatient (CLI) | payer MEDICARE, OTHER, SELFPAY ==
[2023-01-27 14:33] LABS: Adenovirus F 40/41, stool Not Detected (NotDetected); Astrovirus Not Detected (NotDetected); Clostridium Difficile A/B, PCR Not Detected (NotDetected); Cryptosporidium Not Detected (NotDetected); Cyclospora Cayetanesis Not Detected (NotDetected); Entamoeba histolytica Not Detected (NotDetected); Enteroaggregative E coli Not Detected (NotDetected); Enterotoxigenic E coli Not Detected (NotDetected); Giardia lamblia Not Detected (NotDetected); Norovirus Not Detected (NotDetected); Plesimonas Shigalloides, PCR Not Detected (NotDetected); Rotavirus A Not Detected (NotDetected); Salmonella, PCR Not Detected (NotDetected); Sapovirus Not Detected (NotDetected); Shiga-like toxin E coli Not Detected (NotDetected); Shigella Enterovasive E coli Not Detected (NotDetected); Vibrio Cholerae Not Detected (NotDetected); Vibrio, PCR Not Detected (NotDetected); Yersinia Entercolitica, PCR Not Detected (NotDetected)
[2023-01-30 12:07] LABS: Campylobacter Detected (NotDetected); Enteropathogenic E coli Detected (NotDetected)
== END ==
PROVIDERS: PCP Internal Medicine; Visit Provider Internal Medicine
DX: R19.7 Diarrhea, unspecified (principal); A04.5 Campylobacter enteritis; A04.0 Enteropathogenic Escherichia coli infection; R10.9 Unspecified abdominal pain
CPT/HCPCS: 87205; 87506

== ENCOUNTER 2023-07-15 14:47 | Outpatient (CLI) | payer MEDICARE, OTHER, SELFPAY ==
--- NOTE | 2023-07-15 15:16 | MM_ITS ---
PROCEDURE INFORMATION: Exam: MG Bilateral Screening 3D Mammography Exam date and time: 07/15/2023 3:03 PM Age: 73 years old Clinical indication: Screening examination TECHNIQUE: Imaging protocol: Bilateral Screening tomosynthesis and 2D mammography including computer-aided detection (CAD) when performed. COMPARISON: 1. MG MM DIG SCREENING MAMM BI W/CAD 05/18/2022 8:22 AM 2. MG DMSB DIG MAMM-SCREEN YOU W/CAD 04/10/2016 9:30 AM FINDINGS: MAMMOGRAPHY: Breast composition: There are scattered areas of fibroglandular density. Mass: None. Architectural distortion: None. Calcifications: No suspicious calcifications. Asymmetric density: None. Skin thickening: None. Axillary adenopathy: None. IMPRESSION: No mammographic evidence of malignancy. Annual screening is recommended unless otherwise clinically indicated. ASSESSMENT: BI-RADS Category 1: Negative
== END 2023-07-15 23:59 ==
LOC: RAD 14:48
PROVIDERS: PCP Internal Medicine Adolescent Medicine; Visit Provider Internal Medicine Adolescent Medicine
DX: Z12.31 Encounter for screening mammogram for malignant neoplasm of breast (principal)
CPT/HCPCS: 77063; 77067